=== PATIENT | male | born 1970 | race Caucasian/White ===

== ENCOUNTER → 2016-08-25 | Outpatient (CLI) | payer MEDICAID ==
[~2016-08-25] MED LIST: ATORVASTATIN CA40 MG PO; BACTRIM DS 8001 TAB PO; OXYCODONE AND A1 TA4 PO; TORADOL10 MG PO
[2016-08-25 07:21] LABS: BUN 16 mg/dL (7-18)
[2016-08-25 07:23] LABS: GFR (ESTIMATED) 80 ML/MIN (>60)
--- NOTE | 2016-08-25 10:06 | RADIOLOGY REPORT PS360 ---
CTA-HEAD CLINICAL INDICATION: HEADACHE, INTRACRANIAL ANEURYSM, HTN ORDERING PHYSICIAN: Cuauhtemoc Thomas MD PATIENT AGE: 46 years COMPARISON: None TECHNIQUE: Thin section axial images obtained following the intravenous administration 100 mL of Isovue-370. FINDINGS: No aneurysm, arterial venous malformation, or major intracranial occlusive process is evident. No evidence of sagittal sinus thrombosis. The [place] is unremarkable with no anatomic variants. No enhancing lesions midline shift or mass effect evident. No intracranial hemorrhage or hydrocephalus. There is moderate mucosal thickening of the right maxillary sinus and mild lobular mucosal thickening in the left maxillary sinus medially and inferiorly. No mastoid effusion or sinus air-fluid level. There is mild mucosal thickening of the ethmoid sinus on the left. No acute calvarial abnormalities. IMPRESSION: 1. Negative CT angiogram of the head. No aneurysm AVM or other arterial abnormality evident. 2. No evidence of sagittal sinus thrombosis. 3. Paranasal sinus disease
--- NOTE | 2016-08-25 10:06 | RADIOLOGY REPORT PS360 ---
CTA-HEAD CLINICAL INDICATION: HEADACHE, INTRACRANIAL ANEURYSM, HTN ORDERING PHYSICIAN: Cuauhtemoc Thomas MD PATIENT AGE: 46 years COMPARISON: None TECHNIQUE: Thin section axial images obtained following the intravenous administration 100 mL of Isovue-370. FINDINGS: No aneurysm, arterial venous malformation, or major intracranial occlusive process is evident. No evidence of sagittal sinus thrombosis. The [place] is unremarkable with no anatomic variants. No enhancing lesions midline shift or mass effect evident. No intracranial hemorrhage or hydrocephalus. There is moderate mucosal thickening of the right maxillary sinus and mild lobular mucosal thickening in the left maxillary sinus medially and inferiorly. No mastoid effusion or sinus air-fluid level. There is mild mucosal thickening of the ethmoid sinus on the left. No acute calvarial abnormalities. IMPRESSION: 1. Negative CT angiogram of the head. No aneurysm AVM or other arterial abnormality evident. 2. No evidence of sagittal sinus thrombosis. 3. Paranasal sinus disease
== END ==
LOC: RAD 07:06
PROVIDERS: Internal Medicine
DX: I67.1 Cerebral aneurysm, nonruptured (principal); G44.84 Primary exertional headache; I25.10 Atherosclerotic heart disease of native coronary artery without angina pectoris; I11.9 Hypertensive heart disease without heart failure; E78.5 Hyperlipidemia, unspecified; J44.9 Chronic obstructive pulmonary disease, unspecified
CPT/HCPCS: Q9967

== ENCOUNTER → 2016-11-06 | Outpatient (CLI) | payer MEDICAID ==
[~2016-11-06] MED LIST changes: +ADULT LOW DOSE81 MG; +SINGULAIR 10 MG10 MG
== END ==
LOC: RT 13:38
DX: R06.02 Shortness of breath (principal); J42 Unspecified chronic bronchitis; R63.4 Abnormal weight loss

== ENCOUNTER → 2017-04-08 | Outpatient (CLI) | payer MEDICAID ==
--- NOTE | 2017-04-09 05:23 | RADIOLOGY REPORT PS360 ---
CT CHEST W/O CONTRAST HISTORY: SHORTNESS OF BREATH,TOBACCO USE ORDERING PHYSICIAN: SAMUEL YATES MD PATIENT AGE: 46 years TECHNIQUE: Helical acquisition obtained without contrast. Axial, sagittal, and coronal reformatted images are generated and reviewed. COMPARISON: 03/23/2016 outside exam FINDINGS: There are scattered small lymph nodes within the mediastinum. Coronary artery stent present. There is normal heart size. No pericardial thickening. The ascending aorta is slightly prominent at 4 cm. There are multiple noncalcified pulmonary nodules including a 7 x 7 mm nodule within the right lower lobe anteriorly and laterally. This nodule appears somewhat more prominent on today's exam however, this could be related to the technique/slice thickness/slice orientation. Previously the nodule measured 6 mm but is well defined on today's exam which again could be related to the technique. Slice thickness is 3.75 mm on today's exam compared to 5 mm on the previous study. Just anterior to this nodule is a 5 x 5 mm nodule.. A 5 mm nodules present in the right lung base posteriorly unchanged and there is a 4 mm nodule in the left lower lobe unchanged. There is hyperinflation with attenuation of peripheral pulmonary vessels and bronchial thickening consistent with obstructive chronic bronchitis. A 4 mm noncalcified nodules present in the left upper lobe laterally unchanged. There is calcified granulomas in the left lung base medially Chronic wedge compression changes are present at L1 status post prior vertebral plasty. Degenerative changes are present in the thoracic spine but no acute findings are evident there is mild cortical thickening of the proximal aspect of the body of the sternum and could be related to an old fracture. IMPRESSION: 1. Multiple noncalcified pulmonary nodules the largest in the right lower lobe at 7 x 7 mm. Most of the nodules are unchanged. The largest nodule appears very slightly more prominent but could be related to the technique. Continued follow-up recommended. 2. Obstructive chronic bronchitis. 3. Mild prominence of the ascending aorta at 4 cm
== END ==
LOC: RAD 14:24
DX: R06.02 Shortness of breath (principal); Z71.6 Tobacco abuse counseling